=== PATIENT | male | born 1995 | race Caucasian/White ===

== ENCOUNTER 2016-11-07 07:00 | Emergency (ER) | payer MEDICAID ==
[2014-12-15 13:34] VITALS: BP 140/76
[~2016-11-07] VITALS: Ht 165.1 cm; Wt 61.2 kg
[2016-11-07] MEDS ORDERED: PENI500T PO (07:27)
[2016-11-07] MEDS ORDERED: HYDR-971 PO (07:27)
--- NOTE | 2016-11-07 07:28 | PHYS DOC ---
Past Medical History Past Medical History: No Pertinent History Past Surgical History: No Surgical History Alcohol Use: None Drug Use: None Adult General Chief Complaint Chief Complaint: Toothache HPI HPI Patient is a 20 year old male who presents ambulatory to the ED with a right sided toothache. It had been bothering him for a while, and then yesterday he bit down on something and it has been killing him ever since. He has not had a previous injury to the tooth. Review of Systems Review of Systems Constitutional: Denies fever or chills [] Allergies Allergies Allergies Coded Allergies Type Severity Reaction Last Updated Verified No Known Drug Allergies 12/15/14 No Physical Exam Physical Exam Constitutional: Well developed, well nourished, appears very uncomfortable, alert, mentating normally HENT: Normocephalic, atraumatic, bilateral external ears normal, nose normal. Mouth: Dentition generally good. The patient indicates the area of pain coming from the right upper second molar. There is no evidence of cavity, or other abnormality in this area. There is no sign of periapical abscess. Remainder of dentition appears healthy without gum disease or abscess noted. There is no swelling of the soft palate or the tongue. The patient is handling his secretions normally. Eyes: conjunctiva normal, no discharge. [] Neck: Normal range of motion, no tenderness, supple, no stridor. [] Skin: Warm, dry, no erythema, no rash. [] Back: No tenderness, no CVA tenderness. [] Extremities: No tenderness, no cyanosis, no clubbing, ROM intact, no edema. [] Neurologic: Alert and oriented X 3, normal motor function, normal sensory function, no focal deficits noted. [] Current Patient Data Vital Signs Vital Signs Date Time Temp Pulse Resp B/P (MAP) Pulse Ox O2 Delivery O2 Flow Rate FiO2 11/07/16 07:10 98.1 64 20 100 Room Air 98.1 EKG EKG [] Radiology/Procedures Radiology/Procedures [] Course & Med Decision Making Course & Med Decision Making Pertinent Labs and Imaging studies reviewed. (See chart for details) 20-year-old male presents with a bad toothache since just today. It sounds like he may have a cracked tooth and it was exacerbated by something he bit down on yesterday. We will start him on some antibiotics and I cautioned him about following up with a dentist as soon as possible. See instructions for plan. [] Dragon Disclaimer Dragon Disclaimer This electronic medical record was generated, in whole or in part, using a voice recognition dictation system. Departure Departure Impression: Primary Impression: Pain, dental Disposition: HOME, SELF-CARE Condition: STABLE Referrals: NO PCP (PCP) Patient Instructions: Toothache-Brief Additional Instructions: Ibuprofen 800 mg every 6-8 hours. This is four of the over the counter 200 mg pills. Penicillin as prescribed. Hydrocodone for more severe pain, it is OK to combine with ibuprofen, do not take while driving or working. Ice pack may help. Call first thing in the morning for dentist appointment. Scripts Hydrocodone/Apap 5-325 (NORCO 5-325 TABLET) 1 Each Tablet 1-2 TAB PO Q4-6HRS for toothache, #20 TAB Prov: DONNIE GAUTHIER MD 11/07/16 Penicillin V Potassium (PENICILLIN V POTASSIUM) 500 Mg Tablet 1 TAB PO QID for toothache, #20 TAB Prov: DONNIE GAUTHIER MD 11/07/16 DONNIE GAUTHIER MD November 07, 2016 07:28
== END 2016-11-07 07:36 | disposition home or self-care (01) ==
LOC: ER 07:00
DX: K08.89 Other specified disorders of teeth and supporting structures (principal)
CPT/HCPCS: 99283

== ENCOUNTER 2016-11-28 19:41 | Emergency (ER) | payer MEDICAID ==
[~2016-11-28] VITALS: Ht 162.6 cm; Wt 61.2 kg
[~2016-11-28 19:41] MED LIST: HYDR-971 PO; PENI500T PO
[2016-11-28 20:05] VITALS: BP 126/68
[2016-11-28] MEDS ORDERED: DIPHTH,PERTUSS(ACELL),TET TOX 0.5 ML DISP.SYRIN. VAX IM ONE (20:30)
[2016-11-28] MEDS ORDERED: CIPR500T94 PO (20:34)
--- NOTE | 2016-11-28 20:34 | PHYS DOC ---
Past Medical History Past Medical History: No Pertinent History Past Surgical History: No Surgical History Alcohol Use: None Drug Use: None Adult General Chief Complaint Chief Complaint: FOOT INJURY PAIN HPI HPI Patient is a 20 year old male presents to the emergency department stating that he stepped on a nail while mowing the yard yesterday in his right foot. He states that he pulled the nail out of his shoe into his foot. He does not have any bleeding or discharge or drainage noted from the area. He is unsure when his last tetanus immunization occurred. He denies any fever, chills or any nausea vomiting. He does state however he has had increased pain with ambulation. He did take Advil with minimal relief. Review of Systems Review of Systems Constitutional: Denies fever or chills [] Eyes: Denies change in visual acuity, redness, or eye pain [] HENT: Denies nasal congestion or sore throat [] Respiratory: Denies cough or shortness of breath [] Cardiovascular: No additional information not addressed in HPI [] GI: Denies abdominal pain, nausea, vomiting, bloody stools or diarrhea [] : Denies dysuria or hematuria [] Musculoskeletal: Denies back pain C/o pain to the right foot after stepping on a nail Integument: Denies rash or skin lesions [] Neurologic: Denies headache, focal weakness or sensory changes [] Endocrine: Denies polyuria or polydipsia [] Current Medications Current Medications Current Medications Medications (Trade) Dose Ordered Sig/Nilson Start Time Stop Time Status Last Admin Dose Admin Diphtheria/ Tetanus/Acell Pertussis (Boostrix) 0.5 ml ONCE ONCE 11/28/16 20:30 11/28/16 20:31 Allergies Allergies Allergies Coded Allergies Type Severity Reaction Last Updated Verified No Known Drug Allergies 12/15/14 No Physical Exam Physical Exam Constitutional: Well developed, well nourished, no acute distress, non-toxic appearance. [] HENT: Normocephalic, atraumatic, bilateral external ears normal, oropharynx moist, no oral exudates, nose normal. [] Eyes: PERRLA, EOMI, conjunctiva normal, no discharge. [] Neck: Normal range of motion, no tenderness, supple, no stridor. [] Cardiovascular:Heart rate regular rhythm,] Skin: Warm, dry, no erythema, no rash. Puncture wound noted to the bottom of the right metatarsal area no drainage no discharge no redness noted from the site. Extremities: No tenderness, no cyanosis, no clubbing, ROM intact, no edema. [] Neurologic: Alert and oriented X 3, normal motor function, normal sensory function, no focal deficits noted. [] Psychologic: Affect normal, judgement normal, mood normal. [] Current Patient Data Vital Signs Vital Signs Date Time Temp Pulse Resp B/P (MAP) Pulse Ox O2 Delivery O2 Flow Rate FiO2 11/28/16 20:05 97.9 85 16 98 Room Air 97.9 EKG EKG [] Radiology/Procedures Radiology/Procedures [] Course & Med Decision Making Course & Med Decision Making Pertinent Labs and Imaging studies reviewed. (See chart for details) Patient updated with a tetanus immunization here in the emergency department. X- ray of the foot appears to have no foreign body retained in the foot. Patient will be discharged home in stable condition signs and symptoms to return back to emergency department as been provided. Recommended Epsom salts soaks 3-4 times a day as well as Cipro. Recommended following up to primary care physician in the next 3-5 days. Patient agrees with discharge instructions treatment regimens and follow-up recommendations. Signs and symptoms to return back to emergency department as been provided. [] Dragon Disclaimer Dragon Disclaimer This electronic medical record was generated, in whole or in part, using a voice recognition dictation system. Departure Departure Impression: Primary Impression: Puncture wound of foot, right Disposition: 01 HOME, SELF-CARE Condition: STABLE Referrals: NO PCP (PCP) Patient Instructions: Puncture Wound, Ihyi-eb-Yads Additional Instructions: Keep the area clean and dry. Clean the site with soap and water twice a day. Warm Epsom salt soaks 3-4 times a day for 20 minutes at a time. Medication as prescribed. Follow-up to primary care physician next 3-5 days. Return back to emergency prior signs symptoms of become worse. Scripts Ciprofloxacin Hcl (CIPRO) 500 Mg Tablet 1 TAB PO BID, #20 TAB Prov: DAVIN PANIAGUA APRN 11/28/16 DAVIN PANIAGUA APRN Nov 28, 2016 20:34
--- NOTE | 2016-11-29 08:35 | RAD ---
Indication stepped on nail. AP oblique and lateral views of the right foot were obtained. On the lateral view note is made of an arrow indicating the point of interest. No acute bony finding is seen. No radiopaque foreign body is seen.
== END 2016-11-28 20:40 | disposition home or self-care (01) ==
LOC: ER 19:41
DX: S91.331A Puncture wound without foreign body, right foot, initial encounter (principal); W45.0XXA Nail entering through skin, initial encounter; Y93.89 Activity, other specified; Y92.89 Other specified places as the place of occurrence of the external cause; Y99.8 Other external cause status
CPT/HCPCS: 73630; 90471; 90715; 99284-25

== ENCOUNTER 2016-12-15 19:50 | Emergency (ER) | payer MEDICAID ==
[~2016-12-15] VITALS: Ht 162.6 cm; Wt 61.2 kg
[~2016-12-15 19:50] MED LIST changes: +CIPR500T94 PO
[2016-12-15 20:04] VITALS: BP 122/71
[2016-12-15] MEDS ORDERED: TRAM-48 PO (20:32)
[2016-12-15] MEDS ORDERED: AMOX875T PO (20:32)
--- NOTE | 2016-12-15 20:32 | PHYS DOC ---
Past Medical History Past Medical History: No Pertinent History Past Surgical History: No Surgical History Alcohol Use: None Drug Use: None Adult General Chief Complaint Chief Complaint: DENTAL PROBLEM HPI HPI Patient is a 20 year old male who presents with 8 out of 9 right upper gum dental pain with abscess that began two days ago. Patient denies any fever. Denies any drainage from the area. Denies any trismus. He states he has an appointment with his dentist next week on Monday. Review of Systems Review of Systems Constitutional: Denies fever or chills [] Eyes: Denies change in visual acuity, redness, or eye pain [] HENT: dental pain with abscess Musculoskeletal: Denies back pain or joint pain [] Integument: Denies rash or skin lesions [] Neurologic: Denies headache, focal weakness or sensory changes [] Endocrine: Denies polyuria or polydipsia [] Allergies Allergies Allergies Coded Allergies Type Severity Reaction Last Updated Verified No Known Drug Allergies 12/15/14 No Physical Exam Physical Exam Constitutional: Well developed, well nourished, no acute distress, non-toxic appearance. [] HENT: Normocephalic, atraumatic, bilateral external ears normal, oropharynx moist, no oral exudates, nose normal. [] Right upper gum along tooth 3,4 and 5 with a small induration consistent with a dental abscess. The abscess is very fluctuant. There is surrounding erythema to the area. Abdomen: Bowel sounds normal, soft, no tenderness, no masses, no pulsatile masses. [] Skin: Warm, dry, no erythema, no rash. [] Back: No tenderness, no CVA tenderness. [] Extremities: No tenderness, no cyanosis, no clubbing, ROM intact, no edema. [] Neurologic: Alert and oriented X 3, normal motor function, normal sensory function, no focal deficits noted. [] Psychologic: Affect normal, judgement normal, mood normal. [] Current Patient Data Vital Signs Vital Signs Date Time Temp Pulse Resp B/P (MAP) Pulse Ox O2 Delivery O2 Flow Rate FiO2 12/15/16 20:04 98.6 68 18 99 Room Air 98.6 EKG EKG [] Radiology/Procedures Radiology/Procedures [] Course & Med Decision Making Course & Med Decision Making Pertinent Labs and Imaging studies reviewed. (See chart for details) Patient has a dental abscess that is ready to be drained. I did offer to drain it. Patient was afraid and could not tolerate it. He was put on amoxicillin. Discharged with hydrocodone for pain. Follow-up with his own dentist which he states he has an appointment for next Monday. Torin Disclaimer Torin Disclaimer This electronic medical record was generated, in whole or in part, using a voice recognition dictation system. Departure Departure Impression: Primary Impression: Abscess, dental Additional Impression: Dental caries Disposition: HOME, SELF-CARE Condition: STABLE Referrals: NO PCP (PCP) Follow-up with your dentist as soon as possible Patient Instructions: Dental Abscess, Dental Caries Additional Instructions: You were seen for dental abscess. Ensure you complete your antibiotics. Follow- up with your dentist as soon as possible. Scripts Tramadol Hcl (ULTRAM) 50 Mg Tablet 1 TAB PO Q6HRS, #30 TAB Prov: KATHE KHALIL APRN 12/15/16 Amoxicillin (AMOXICILLIN) 875 Mg Tablet 1 TAB PO BID, #20 TAB Prov: KAHTE KHALIL APRN 12/15/16 Problem Qualifiers KATHE KHALIL APRN Dec 15, 2016 20:32
== END 2016-12-15 20:37 | disposition home or self-care (01) ==
LOC: ER 19:50
DX: K04.7 Periapical abscess without sinus (principal); K02.9 Dental caries, unspecified
CPT/HCPCS: 99283